=== PATIENT | male | born 1985 | race Caucasian/White ===

== ENCOUNTER 2016-08-20 22:15 | Emergency (ER) | payer OTHER ==
[~2016-08-20] VITALS: Ht 167.6 cm; Wt 60.0 kg
[2016-08-20 22:18] VITALS: Ht 167.6 cm; Wt 60.0 kg
[2016-08-20] MEDS ORDERED: DIAZEPAM 5 MG TAB PO ONE (23:30)
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
[2016-08-20] MEDS ORDERED: HYDR-906 PO (23:32)
[2016-08-21 00:07] VITALS: BP 120/80; PULSE 99; RESP 20; TEMP 97.7
== END 2016-08-21 00:08 | disposition home or self-care (01) ==
LOC: FTE 22:15
DX: M54.2 Cervicalgia (principal); F17.210 Nicotine dependence, cigarettes, uncomplicated
CPT/HCPCS: 99283

== ENCOUNTER 2016-10-21 15:41 | Emergency (ER) | payer OTHER ==
[~2016-10-21] VITALS: Ht 167.6 cm; Wt 63.0 kg
[~2016-10-21 15:41] MED LIST: HYDR-906 PO
[2016-10-21 15:44] VITALS: Ht 167.6 cm; Wt 63.0 kg
[2016-10-21] MEDS ORDERED: IBUPROFEN 800 MG TAB PO ONE (17:30)
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
--- NOTE | 2016-10-21 18:43 | RADRPT ---
PROCEDURE: XR left Hand. CLINICAL INDICATION: Chronic pain TECHNIQUE: Three views of the left hand were obtained. COMPARISON: No prior studies are available for comparison. FINDINGS: There is no acute osseous or articular abnormality. No evidence for fracture. Bone mineral density is preserved. 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 The remaining articular surfaces a re smooth without evidence of marginal erosions. Carpal alignment is maintained. Negative ulnar vari ance. The soft tissues are intact without evidence of calcifications. IMPRESSION: 1. No acute osseous abnormality. 2. 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 RPTAT: VV .Barry Alvarado MD, Date Time Electronically viewed and signed by .Barry Alvarado MD, on 10/21/2016 18:42 .d/
--- NOTE | 2016-10-21 18:43 | RADRPT ---
PROCEDURE: XR Wrist. CLINICAL INDICATION: Chronic wrist pain TECHNIQUE: AP, lateral and oblique views of the left wrist were performed. COMPARISON: No prior studies are available for comparison. FINDINGS: There is no acute osseous or articular abnormality. No evidence for fracture. Bone mineral density is preserved. 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 The remaining articular surfaces a re smooth without evidence of marginal erosions. Carpal alignment is maintained. Negative ulnar vari ance. The soft tissues are intact without evidence of calcifications. IMPRESSION: 1. No acute osseous abnormality. 2. 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 RPTAT: VV .Barry Alvarado MD, MD Date Time Electronically viewed and signed by .Barry Alvarado MD, on 10/21/2016 18:42 .d/
[2016-10-21] MEDS ORDERED: IBUP800T25 PO (18:50)
== END 2016-10-21 19:31 | disposition home or self-care (01) ==
LOC: FTE 15:41
DX: M25.532 Pain in left wrist (principal); F17.210 Nicotine dependence, cigarettes, uncomplicated
CPT/HCPCS: 73110; 73130; Z7502; Z7610